=== PATIENT | male | born 1940 | race Caucasian/White ===

== ENCOUNTER 2018-08-31 08:54 | Outpatient (CLI) | payer MEDICARE ==
[2018-08-31] VITALS (21 sets, daily range): BP systolic 98–150; BP diastolic 52–97
[~2018-08-31 08:54] MED LIST: ALLO100T PO; AMIO200T40 PO; AMLO1CAP59 PO; ATEN1TAB4 PO; BENA10TA74 PO; DABI150C PO; FURO40TA4 PO; HYT1T PO; IBUP-1574 PO; MV-M1TAB13 PO; POTA20TA39 PO; SIMV20TA5 PO
== END 2018-08-31 23:59 | disposition home or self-care (01) ==
LOC: CARD DIAG 08:54
PROVIDERS: ATTEND Internal Medicine Cardiovascular Disease
DX: R42 Dizziness and giddiness (principal); I10 Essential (primary) hypertension; Z98.890 Other specified postprocedural states; Z72.89 Other problems related to lifestyle
CPT/HCPCS: 93660

== ENCOUNTER 2018-11-09 05:30 | Inpatient (IN) | payer MEDICARE ==
[~2018-11-09] VITALS: Ht 172.7 cm; Wt 95.0 kg
[2018-11-09 06:22] LABS: BASOPHILS % (AUTO) 0.1 % (0-1); EOSINOPHILS # (AUTO) 0.1 X10'3 (0-0.9); EOSINOPHILS % (AUTO) 0.5 % (0-6); HEMATOCRIT 28.7 % (42.0-52.0); HEMOGLOBIN 9.7 g/dl (14.0-17.9); LYMPHOCYTES # (AUTO) 0.5 X10'3 (1.1-4.8); LYMPHOCYTES % (AUTO) 4.9 % (21-51); MEAN CORPUSCULAR HEMOGLOBIN 30.8 PG (27.0-31.0); MEAN CORPUSCULAR HGB CONC 33.7 g/dL (33.0-36.5); MEAN CORPUSCULAR VOLUME 91.4 FL (78-98); MEAN PLATELET VOLUME 8.4 FL (7.4-10.4); MONOCYTES # (AUTO) 0.7 X10'3 (0-0.9); MONOCYTES % (AUTO) 6.6 % (2-12); NEUTROPHILS # (AUTO) 9.3 X10'3 (1.8-7.7); NEUTROPHILS % (AUTO) 87.9 % (42-75); PLATELET COUNT 214 X10'3 (140-440); RED BLOOD COUNT 3.14 X10'6 (4.70-6.10); WHITE BLOOD COUNT 10.6 X10'3 (4.5-11.0)
[2018-11-09 06:37] LABS: INR 1.1 INR; PARTIAL THROMBOPLASTIN TIME 29 SECONDS (22-32); PROTHROMBIN TIME 11.1 SECONDS (9.0-12.0)
[2018-11-09 06:38] LABS: ALANINE AMINOTRANSFERASE 50 U/L (12-78); ALBUMIN 2.3 G/DL (3.4-5.0); ALBUMIN/GLOBULIN RATIO 0.7 (1.1-1.5); ALKALINE PHOSPHATASE 68 IU/L (46-116); ANION GAP 11 (8-16); ASPARTATE AMINO TRANSFERASE 42 U/L (10-37); BILIRUBIN,TOTAL 0.6 MG/DL (0.1-1.0); CALCIUM 8.8 MG/DL (8.5-10.1); CHLORIDE 102 MMOL/L (99-107); GLUCOSE 100 MG/DL (70-104); POTASSIUM 3.2 MMOL/L (3.5-5.1); SODIUM 135 MMOL/L (135-145); TOTAL CARBON DIOXIDE 22.3 MMOL/L (24-32); TOTAL PROTEIN 5.6 G/DL (6.4-8.2)
[2018-11-09 06:46] LABS: MAGNESIUM 1.7 MG/DL (1.5-2.4)
[2018-11-09 06:58] LABS: BLOOD UREA NITROGEN 97 MG/DL (7-18); BUN/CREATININE RATIO 56.4 (5.4-32.0); CREATININE 1.72 MG/DL (0.60-1.10); eGFR 39 ML/MIN
--- NOTE | 2018-11-09 06:58 | NUR ---
pt sister Bethanie would like to speak with admiting Doctor [phone] this is her home number. sister states she would like him placed in rehab, she is unable to care for him. she states he can not be alone and that it took 5 ems to get him lifted this am. pt has has been falling daily.
[2018-11-09 07:38] LABS: PLATELET ESTIMATE NORMAL
[2018-11-09 07:44] LABS: ELLIPTOCYTES 2+; POIKILOCYTOSIS 2+
[2018-11-09 07:45] LABS: SCHISTOCYTES 1+
[2018-11-09] MEDS ORDERED: sulfamethoxazole/trimethoprim DS (800/160mg) tablet PO ONE (07:50)
[2018-11-09] MEDS ORDERED: fluconazole 150mg tablet PO ONE (07:50)
[2018-11-09 08:24] LABS: CLARITY,URINE CLEAR (Clear); COLOR,URINE YELLOW (Yellow); GLUCOSE, URINE NEGATIVE (Neg); KETONES,URINE NEGATIVE (Neg); LEUKOCYTE ESTERASE ,URINE NEGATIVE (Neg); NITRITES, URINE NEGATIVE (Neg); OCCULT BLOOD,URINE SMALL (Neg); PH,URINE 5.5 (4.8-8.0); PROTEIN,URINE NEGATIVE (Neg); UROBILINOGEN,URINE 0.2 E.U/dL (0.2-1.0)
[2018-11-09 08:26] LABS: UA COLLECTION TYPE CLN CATCH MIDSTREAM
[2018-11-09] MEDS ORDERED: NITR0.4T48 SL (08:29)
[2018-11-09] MEDS ORDERED: ATEN25TA PO (08:29)
[2018-11-09] MEDS ORDERED: MELO-100 PO (08:29)
[2018-11-09] MEDS ORDERED: LOSA25TA96 PO (08:29)
[2018-11-09 08:51] LABS: BACTERIA,URINE NONE SEEN /HPF (Neg); MUCUS STRANDS NONE SEEN /LPF (Neg); SQUAMOUS EPITHELIAL CELL,UR NONE SEEN /LPF (FEW); WBC,URINE 0-4 /HPF (0-4)
[2018-11-09] MEDS ORDERED: magnesium 4gm in 100ml NS 100 ML IV PRN (09:10)
[2018-11-09] MEDS ORDERED: ondansetron/PF 4mg/2ml inj IV PRN (09:10)
[2018-11-09] MEDS ORDERED: potassium Cl 40MEQ/NS 500ml 500 ML IV PRN ×2 (09:10)
[2018-11-09] MEDS ORDERED: magnesium Cl slow-release 64mg tablet PO PRN (09:10)
[2018-11-09] MEDS ORDERED: acetaminophen 325mg tablet PO PRN ×2 (09:10)
[2018-11-09] MEDS ORDERED: magnesium 2GM in 50ml NS 50 ML IV PRN (09:10)
[2018-11-09] MEDS ORDERED: potassium Cl 20 mEq SR tablet PO PRN ×2 (09:10)
[2018-11-09 10:12] LABS: CREATINE KINASE 131 U/L (39-308)
[2018-11-09] MEDS: morphine 4 MG/ML inj SYRINge IV PRN ×2 (10:28→19:44)
[2018-11-09] MEDS: normal saline 1000ml 1,000 ML IV SCH ×2 (10:28→17:39)
[2018-11-09] MEDS ORDERED: APIX2.5T PO (12:15)
[2018-11-09] MEDS ORDERED: LOPE2CAP PO (12:18)
[2018-11-09] MEDS ORDERED: ATOR20TA66 PO (12:20)
[2018-11-09] MEDS ORDERED: FAMO20TA8 PO (12:21)
[2018-11-09] MEDS ORDERED: FLO0.1T PO (12:22)
[2018-11-09] MEDS ORDERED: TAMS0.4C32 PO (12:24)
[2018-11-09] MEDS: nystatin 15 GM powder TP SCH ×2 (13:00→19:58)
--- NOTE | 2018-11-09 15:50 | NUR ---
Received report from Danilo SINGH in ER. Patient has arrived in room 354C patient has excoriated groin area no pictures taken in ER.
[2018-11-09] MEDS: HYDROcodone/acetaminophen 5mg/325mg tablet PO PRN (15:52)
[2018-11-09 16:15] VITALS: BP 146/53
--- NOTE | 2018-11-09 18:23 | NUR ---
Problems reprioritized. Patient report given, RIDDHI SINGH questions answered & plan of care reviewed with . PATIENT IN BED EATTING DINNER, DAUGHTER AT BEDSIDE. CALL LIGHT IN REACH, BED LOW LOCKED
--- NOTE | 2018-11-09 18:54 | NUR ---
Patient in room [facility] 354. I have received report from Rachna SINGH and had the opportunity to ask questions and assume patient care. Pt was sitting up in bed eating dinner with daughter at bedside. Pt has no signs of distress, will continue to monitor.
[2018-11-09] MEDS ORDERED: potassium Cl oral solution 20 MEQ/15 ML PO PRN (19:05)
[2018-11-09] MEDS: docusate sod 100mg capsule PO SCH (19:44)
[2018-11-09] MEDS: apixaban 2.5mg tablet PO SCH (19:44)
[2018-11-09 20:00] VITALS: BP 115/79
[2018-11-09] MEDS ORDERED: heparin, porcine 5000 units/ml vial SQ SCH (20:00)
[2018-11-09] MEDS: potassium Cl oral solution 20 MEQ/15 ML PO PRN (21:22)
[2018-11-10 00:39] VITALS: BP 126/57
[2018-11-10] MEDS: potassium Cl oral solution 20 MEQ/15 ML PO PRN (01:50)
[2018-11-10] MEDS: HYDROcodone/acetaminophen 5mg/325mg tablet PO PRN ×3 (01:52→17:23)
[2018-11-10] MEDS: normal saline 1000ml 1,000 ML IV SCH ×2 (04:46→17:24)
[2018-11-10 05:39] LABS: BASOPHILS % (AUTO) 0.4 % (0-1); EOSINOPHILS # (AUTO) 0.1 X10'3 (0-0.9); EOSINOPHILS % (AUTO) 1.3 % (0-6); HEMATOCRIT 27.6 % (42.0-52.0); HEMOGLOBIN 9.5 g/dl (14.0-17.9); LYMPHOCYTES # (AUTO) 1.2 X10'3 (1.1-4.8); LYMPHOCYTES % (AUTO) 14.4 % (21-51); MEAN CORPUSCULAR HGB CONC 34.4 g/dL (33.0-36.5); MEAN PLATELET VOLUME 9.3 FL (7.4-10.4); MONOCYTES # (AUTO) 0.8 X10'3 (0-0.9); MONOCYTES % (AUTO) 8.9 % (2-12); NEUTROPHILS # (AUTO) 6.4 X10'3 (1.8-7.7); PLATELET COUNT 214 X10'3 (140-440); RED BLOOD COUNT 3.06 X10'6 (4.70-6.10); RED CELL DISTRIBUTION WIDTH 17.4 % (11.5-14.5); WHITE BLOOD COUNT 8.6 X10'3 (4.5-11.0)
[2018-11-10 05:45] LABS: ALBUMIN 2.4 G/DL (3.4-5.0); ANION GAP 9 (8-16); BLOOD UREA NITROGEN 83 MG/DL (7-18); BUN/CREATININE RATIO 55.3 (5.4-32.0); CALCIUM 9.2 MG/DL (8.5-10.1); CHLORIDE 104 MMOL/L (99-107); GLUCOSE 92 MG/DL (70-104); MAGNESIUM 1.9 MG/DL (1.5-2.4); POTASSIUM 3.9 MMOL/L (3.5-5.1); SODIUM 137 MMOL/L (135-145); eGFR 45 ML/MIN
--- NOTE | 2018-11-10 06:15 | NUR ---
Patient in room [facility] 354. I have received report from SAMANTHA Oliver and had the opportunity to ask questions and assume patient care.
--- NOTE | 2018-11-10 06:18 | NUR ---
Problems reprioritized. Patient report given, questions answered & plan of care reviewed with Mis SINGH.
[2018-11-10 08:00] VITALS: BP_SYST 116; BP_SYST 127; BP_SYST 130; BP_SYST 134; BP_DIAS 55; BP_DIAS 57; BP_DIAS 61; BP_DIAS 63
[2018-11-10] MEDS: K and/or MAG REPLACEMENT MC SCH (08:00)
[2018-11-10] MEDS: docusate sod 100mg capsule PO SCH ×2 (09:04→20:19)
[2018-11-10] MEDS: losartan 25mg tablet PO SCH (09:05)
[2018-11-10] MEDS: apixaban 2.5mg tablet PO SCH ×2 (09:06→20:19)
[2018-11-10] MEDS: atenolol 25mg tablet PO SCH (09:06)
[2018-11-10] MEDS: fludrocortisone acetate 0.1mg tablet PO SCH (09:06)
[2018-11-10] MEDS: atorvastatin 20mg tablet PO SCH (09:06)
[2018-11-10] MEDS: tamsulosin 0.4mg capsule PO SCH (09:07)
[2018-11-10] MEDS: nystatin 15 GM powder TP SCH ×3 (10:47→20:22)
--- NOTE | 2018-11-10 11:11 | NUR ---
Student Medication Administration: For this medication-pass time frame, all medication were reviewed, dispensed, administered and documented per hospital policy by [facility].
--- NOTE | 2018-11-10 18:15 | NUR ---
Patient in room [facility] 354. I have received report from Mis SINGH and had the opportunity to ask questions and assume patient care.
--- NOTE | 2018-11-10 18:35 | NUR ---
Problems reprioritized. Patient report given, questions answered & plan of care reviewed with SAMANTHA Riggs.
[2018-11-10 19:00] VITALS: BP 112/41
[2018-11-10 20:00] VITALS: BP_SYST 105; BP_SYST 125; BP_SYST 132; BP_DIAS 43; BP_DIAS 53; BP_DIAS 63
[2018-11-11] VITALS: BP 139/67
[2018-11-11 05:55] LABS: BASOPHILS % (AUTO) 0.4 % (0-1); EOSINOPHILS # (AUTO) 0.2 X10'3 (0-0.9); HEMATOCRIT 29.5 % (42.0-52.0); HEMOGLOBIN 9.8 g/dl (14.0-17.9); LYMPHOCYTES % (AUTO) 12.1 % (21-51); MEAN CORPUSCULAR HEMOGLOBIN 30.3 PG (27.0-31.0); MEAN CORPUSCULAR HGB CONC 33.4 g/dL (33.0-36.5); MEAN CORPUSCULAR VOLUME 90.6 FL (78-98); MEAN PLATELET VOLUME 9.1 FL (7.4-10.4); MONOCYTES # (AUTO) 0.8 X10'3 (0-0.9); MONOCYTES % (AUTO) 9.8 % (2-12); NEUTROPHILS # (AUTO) 6.5 X10'3 (1.8-7.7); NEUTROPHILS % (AUTO) 75.7 % (42-75); PLATELET COUNT 235 X10'3 (140-440); RED BLOOD COUNT 3.25 X10'6 (4.70-6.10); WHITE BLOOD COUNT 8.6 X10'3 (4.5-11.0)
[2018-11-11 06:00] LABS: ALBUMIN 2.4 G/DL (3.4-5.0); ANION GAP 9 (8-16); BLOOD UREA NITROGEN 47 MG/DL (7-18); BUN/CREATININE RATIO 43.5 (5.4-32.0); CALCIUM 9.5 MG/DL (8.5-10.1); CHLORIDE 107 MMOL/L (99-107); CREATININE 1.08 MG/DL (0.60-1.10); GLUCOSE 92 MG/DL (70-104); MAGNESIUM 1.7 MG/DL (1.5-2.4); POTASSIUM 3.7 MMOL/L (3.5-5.1); SODIUM 141 MMOL/L (135-145); TOTAL CARBON DIOXIDE 24.6 MMOL/L (24-32); eGFR 66 ML/MIN
--- NOTE | 2018-11-11 06:27 | NUR ---
Problems reprioritized. Patient report given, questions answered & plan of care reviewed with Mis SINGH and AYLA Simpson..
[2018-11-11] MEDS: normal saline 1000ml 1,000 ML IV SCH ×2 (07:14→20:17)
[2018-11-11 07:24] VITALS: BP 167/77
[2018-11-11 08:00] VITALS: BP_SYST 137; BP_SYST 143; BP_DIAS 63; BP_DIAS 76
[2018-11-11] MEDS: K and/or MAG REPLACEMENT MC SCH (08:00)
[2018-11-11] MEDS: HYDROcodone/acetaminophen 5mg/325mg tablet PO PRN ×2 (09:15→19:47)
[2018-11-11] MEDS: atenolol 25mg tablet PO SCH (09:15)
[2018-11-11] MEDS: tamsulosin 0.4mg capsule PO SCH (09:16)
[2018-11-11] MEDS: atorvastatin 20mg tablet PO SCH (09:16)
[2018-11-11] MEDS: fludrocortisone acetate 0.1mg tablet PO SCH (09:16)
[2018-11-11] MEDS: apixaban 2.5mg tablet PO SCH ×2 (09:16→19:44)
[2018-11-11] MEDS: docusate sod 100mg capsule PO SCH ×2 (09:17→19:44)
[2018-11-11] MEDS: losartan 25mg tablet PO SCH (09:17)
[2018-11-11 11:00] VITALS: BP 143/76
[2018-11-11] MEDS: nystatin 15 GM powder TP SCH ×3 (11:04→23:17)
--- NOTE | 2018-11-11 12:05 | NUR ---
Mal[place] consult re: Wt loss with decreased appetite. Attempted visit with pt at bedside however pt was sleeping and did not wake for RD visit. No visible fat or muscle wasting was noted at the time of visit. Pt on a heart healthy diet with previous PO intake averaging 75% however noted that recent intake down to average of 25%. Pt with no significant edema or decrease in muscle strength. Pt currently does not meet criteria for malnutrition. Will continue to follow and monitor qualifying criteria and need for ONS if increased PO intake does return. Addendum: 11/11/18 at [address] Amended: Links added.
[2018-11-11 16:33] LABS: FERRITIN 120 NG/ML (26-388)
[2018-11-11 16:45] LABS: % IRON SATURATION 9 % (11-46); IRON 18 UG/DL (53-167); TOTAL IRON BINDING CAPACITY 201 UG/DL (259-388)
--- NOTE | 2018-11-11 18:35 | NUR ---
Problems reprioritized. Patient report given, questions answered & plan of care reviewed with SAMANTHA Riggs.
--- NOTE | 2018-11-11 18:51 | NUR ---
5Patient in room [facility] 354. I have received report from Msi SINGH and had the opportunity to ask questions and assume patient care.
[2018-11-11 19:00] VITALS: BP 157/65
[2018-11-11 20:00] VITALS: BP_SYST 100; BP_SYST 101; BP_SYST 118; BP_DIAS 69; BP_DIAS 78
[2018-11-11] MEDS ORDERED: magnesium hydroxide 30ml (MOM) UD suspension PO PRN (20:10)
[2018-11-11] MEDS ORDERED: diphenhydrAMINE 25mg capsule PO ONE (23:10)
[2018-11-12] VITALS: BP 149/59
[2018-11-12 06:12] LABS: BASOPHILS % (AUTO) 0.4 % (0-1); EOSINOPHILS # (AUTO) 0.2 X10'3 (0-0.9); EOSINOPHILS % (AUTO) 2.1 % (0-6); HEMATOCRIT 29.2 % (42.0-52.0); LYMPHOCYTES # (AUTO) 1.1 X10'3 (1.1-4.8); LYMPHOCYTES % (AUTO) 10.5 % (21-51); MEAN CORPUSCULAR HEMOGLOBIN 30.7 PG (27.0-31.0); MEAN CORPUSCULAR HGB CONC 34.2 g/dL (33.0-36.5); MEAN CORPUSCULAR VOLUME 89.7 FL (78-98); MEAN PLATELET VOLUME 8.6 FL (7.4-10.4); MONOCYTES # (AUTO) 0.9 X10'3 (0-0.9); MONOCYTES % (AUTO) 8.4 % (2-12); NEUTROPHILS % (AUTO) 78.6 % (42-75); PLATELET COUNT 228 X10'3 (140-440); RED BLOOD COUNT 3.25 X10'6 (4.70-6.10); WHITE BLOOD COUNT 10.1 X10'3 (4.5-11.0)
[2018-11-12 06:21] LABS: ALBUMIN 2.3 G/DL (3.4-5.0); ANION GAP 7 (8-16); BLOOD UREA NITROGEN 33 MG/DL (7-18); BUN/CREATININE RATIO 36.7 (5.4-32.0); CALCIUM 9.4 MG/DL (8.5-10.1); CHLORIDE 108 MMOL/L (99-107); GLUCOSE 88 MG/DL (70-104); MAGNESIUM 1.6 MG/DL (1.5-2.4); POTASSIUM 3.5 MMOL/L (3.5-5.1); SODIUM 142 MMOL/L (135-145); TOTAL CARBON DIOXIDE 27.5 MMOL/L (24-32); eGFR 81 ML/MIN
--- NOTE | 2018-11-12 06:50 | NUR ---
Problems reprioritized. Patient report given, questions answered & plan of care reviewed with Hannah SINGH.
--- NOTE | 2018-11-12 06:50 | NUR ---
Patient in room [facility] 354. I have received report from Keely SINGH and had the opportunity to ask questions and assume patient care.
[2018-11-12 07:00] VITALS: BP 178/73
[2018-11-12 07:05] VITALS: BP 168/72
[2018-11-12] MEDS: tamsulosin 0.4mg capsule PO SCH (07:16)
[2018-11-12] MEDS: docusate sod 100mg capsule PO SCH (07:16)
[2018-11-12] MEDS: nystatin 15 GM powder TP SCH ×2 (07:16→13:23)
[2018-11-12] MEDS: fludrocortisone acetate 0.1mg tablet PO SCH (07:16)
[2018-11-12] MEDS: apixaban 2.5mg tablet PO SCH (07:16)
[2018-11-12] MEDS: atorvastatin 20mg tablet PO SCH (07:16)
[2018-11-12] MEDS: losartan 25mg tablet PO SCH (07:26)
[2018-11-12] MEDS: atenolol 25mg tablet PO SCH (07:26)
[2018-11-12] MEDS: K and/or MAG REPLACEMENT MC SCH (08:00)
[2018-11-12 11:00] VITALS: BP 148/81
[2018-11-12 11:23] LABS: OCCULT BLOOD STOOL NEGATIVE (Neg)
[2018-11-12] MEDS ORDERED: NYSPWD TP (13:25)
--- NOTE | 2018-11-12 14:47 | NUR ---
Discharge instructions given to patient, patient verbalized understanding of all instructions made. Patient's Nystatin powder sent with patient. Instructed patient to ensure he has all his belongings before he leave.
--- NOTE | 2018-11-12 14:57 | NUR ---
Report given to Nori BOSS from [facility] over the phone.
--- NOTE | 2018-11-12 15:42 | NUR ---
[facility] came to warehouse picker patient and transport patient to [facility] facility. Hands off report given and belongings sent with the patient
[2018-11-12] MEDS ORDERED: diphenhydrAMINE 25mg capsule PO SCH (21:00)
== END 2018-11-12 16:50 | DRG 682 ==
LOC: ER 05:31 → ED HOLD 09:08 → SUR 3N 16:01
PROVIDERS: ADMIT Internal Medicine; ATTEND Family Medicine
DX: N17.9 Acute kidney failure, unspecified (principal); I50.33 Acute on chronic diastolic (congestive) heart failure; I13.0 Hypertensive heart and chronic kidney disease with heart failure and stage 1 through stage 4 chronic kidney disease, or unspecified chronic kidney disease; E87.6 Hypokalemia; N18.9 Chronic kidney disease, unspecified; D63.8 Anemia in other chronic diseases classified elsewhere; R62.7 Adult failure to thrive; S31.109A Unspecified open wound of abdominal wall, unspecified quadrant without penetration into peritoneal cavity, initial encounter; X58.XXXA Exposure to other specified factors, initial encounter; N40.0 Benign prostatic hyperplasia without lower urinary tract symptoms; M10.9 Gout, unspecified; I48.2 Chronic atrial fibrillation; M54.5 Low back pain; G89.29 Other chronic pain; L30.9 Dermatitis, unspecified; F17.200 Nicotine dependence, unspecified, uncomplicated; Z79.01 Long term (current) use of anticoagulants; Y93.89 Activity, other specified; Y92.89 Other specified places as the place of occurrence of the external cause; Y99.8 Other external cause status
CPT/HCPCS: 36415; 71046; 80048; 80053; 81001; 82272; 82550; 82728; 83540; 83550; 83735; 83880; 84443; 84484; 85025; 85610; 85730; 87070; 93005; 93306; 97110; 97116; 97162; 97530; 99285; G0378; J2270; J7030; Q0163

== ENCOUNTER → 2019-02-05 | Outpatient (CLI) | payer MEDICARE ==
[~2019-02-05] MED LIST changes: -AMIO200T40 PO; -AMLO1CAP59 PO; +APIX2.5T PO; -ATEN1TAB4 PO; +ATEN25TA PO; +ATOR20TA66 PO; -BENA10TA74 PO; -DABI150C PO; +FAMO20TA8 PO; +FLO0.1T PO; -FURO40TA4 PO; -HYT1T PO; -IBUP-1574 PO; +LOPE2CAP PO; +LOSA25TA96 PO; -MV-M1TAB13 PO; +NYSPWD TP; -POTA20TA39 PO; -SIMV20TA5 PO; +TAMS0.4C32 PO
== END | disposition home or self-care (01) ==
LOC: LAB SPEC 16:06
PROVIDERS: ATTEND Internal Medicine
DX: R82.90 Unspecified abnormal findings in urine (principal); R50.81 Fever presenting with conditions classified elsewhere
CPT/HCPCS: 87088; 87186

== ENCOUNTER 2020-02-25 09:42 | Emergency (ER) | payer MEDICARE ==
[~2020-02-25] VITALS: Ht 172.7 cm; Wt 87.3 kg
[~2020-02-25 09:42] MED LIST changes: +FERR325T28 PO; +FURO40TA4 PO; +NITR0.4T48 SL; -NYSPWD TP; +POTA20TA19 PO
[2020-02-25] MEDS ORDERED: TETanus/Pertussis (Acell)/Diphther VAC/PF (Tdap-Adult) 0.5ml syringe IMVAC ONE (09:55)
[2020-02-25] MEDS ORDERED: SULF1TAB49 PO (10:10)
[2020-02-25] MEDS ORDERED: CEPH-572 PO (10:10)
[2020-02-25 10:33] VITALS: BP 150/70
== END 2020-02-25 10:37 | disposition home or self-care (01) ==
LOC: ER 09:43
DX: S60.511A Abrasion of right hand, initial encounter (principal); L03.113 Cellulitis of right upper limb; F03.90 Unspecified dementia, unspecified severity, without behavioral disturbance, psychotic disturbance, mood disturbance, and anxiety; I48.91 Unspecified atrial fibrillation; I50.9 Heart failure, unspecified; I11.0 Hypertensive heart disease with heart failure; Z98.890 Other specified postprocedural states; Z56.0 Unemployment, unspecified; Z79.01 Long term (current) use of anticoagulants; Z79.899 Other long term (current) drug therapy; X58.XXXA Exposure to other specified factors, initial encounter; Y93.89 Activity, other specified; Y92.89 Other specified places as the place of occurrence of the external cause; Y99.8 Other external cause status
CPT/HCPCS: 90471; 90715; 99283

== ENCOUNTER 2021-08-20 18:12 | Emergency (ER) | payer MEDICARE ==
[~2021-08-20] VITALS: Ht 172.7 cm; Wt 90.7 kg
[~2021-08-20 18:12] MED LIST changes: -FLO0.1T PO; -LOSA25TA96 PO; -NITR0.4T48 SL; +POTA-207 PO; -POTA20TA19 PO
[2021-08-20] MEDS ORDERED: CefTRIAXone 2gm/D5W 50ml BAG 50 ML IV ONE (18:55)
[2021-08-20 19:34] LABS: BASOPHILS % (AUTO) 0.6 % (0-1); EOSINOPHILS % (AUTO) 0.5 % (0-6); HEMATOCRIT 31.3 % (42.0-52.0); HEMOGLOBIN 10.5 g/dl (14.0-17.9); LYMPHOCYTES # (AUTO) 0.6 X10'3 (1.1-4.8); LYMPHOCYTES % (AUTO) 13.5 % (21-51); MEAN CORPUSCULAR HEMOGLOBIN 32.2 PG (27.0-31.0); MEAN CORPUSCULAR HGB CONC 33.4 g/dL (33.0-36.5); MEAN CORPUSCULAR VOLUME 96.4 FL (78-98); MEAN PLATELET VOLUME 9.1 FL (7.4-10.4); MONOCYTES # (AUTO) 0.5 X10'3 (0-0.9); MONOCYTES % (AUTO) 12.3 % (2-12); NEUTROPHILS # (AUTO) 3.1 X10'3 (1.8-7.7); NEUTROPHILS % (AUTO) 73.1 % (42-75); PLATELET COUNT 142 X10'3 (140-440); RED BLOOD COUNT 3.25 X10'6 (4.70-6.10); WHITE BLOOD COUNT 4.2 X10'3 (4.5-11.0)
[2021-08-20 19:36] LABS: CLARITY,URINE SLIGHTLY CLOUDY (Clear); COLOR,URINE YELLOW (Yellow); GLUCOSE, URINE NEGATIVE (Neg); KETONES,URINE NEGATIVE (Neg); LEUKOCYTE ESTERASE ,URINE SMALL (Neg); NITRITES, URINE NEGATIVE (Neg); OCCULT BLOOD,URINE SMALL (Neg); PROTEIN,URINE 30 mg/dl (Neg); UROBILINOGEN,URINE 0.2 E.U/dL (0.2-1.0)
[2021-08-20 19:41] LABS: UA COLLECTION TYPE URINAL
[2021-08-20 19:42] LABS: CELLULAR CAST 0-4 /LPF (NEGATIVE)
[2021-08-20 19:43] LABS: BACTERIA,URINE 2+ /HPF (Neg); SQUAMOUS EPITHELIAL CELL,UR FEW /LPF (FEW)
[2021-08-20 19:44] LABS: WBC,URINE 20-30 /HPF (0-4)
[2021-08-20 19:50] LABS: ALANINE AMINOTRANSFERASE 31 U/L (12-78); ALBUMIN 2.8 G/DL (3.4-5.0); ALBUMIN/GLOBULIN RATIO 0.7 (1.1-1.5); ALKALINE PHOSPHATASE 94 IU/L (46-116); ANION GAP 8 (8-16); ASPARTATE AMINO TRANSFERASE 26 U/L (10-37); BILIRUBIN,TOTAL 0.4 MG/DL (0.1-1.0); BLOOD UREA NITROGEN 46 MG/DL (7-18); BUN/CREATININE RATIO 27.9 (5.4-32.0); CALCIUM 8.8 MG/DL (8.5-10.1); CHLORIDE 111 MMOL/L (99-107); CREATININE 1.65 MG/DL (0.60-1.10); GLUCOSE 91 MG/DL (70-104); POTASSIUM 4.4 MMOL/L (3.5-5.1); SODIUM 142 MMOL/L (135-145); TOTAL CARBON DIOXIDE 22.8 MMOL/L (24-32); TOTAL PROTEIN 6.7 G/DL (6.4-8.2); eGFR 40 ML/MIN
[2021-08-20] MEDS ORDERED: CEPH-585 PO (20:28)
[2021-08-20 21:46] VITALS: BP 134/66
== END 2021-08-20 21:55 | disposition home or self-care (01) ==
LOC: ER 18:13
DX: N39.0 Urinary tract infection, site not specified (principal); A41.9 Sepsis, unspecified organism; F03.91 Unspecified dementia, unspecified severity, with behavioral disturbance; I48.91 Unspecified atrial fibrillation; I11.0 Hypertensive heart disease with heart failure; I50.9 Heart failure, unspecified; Z56.0 Unemployment, unspecified; Z79.2 Long term (current) use of antibiotics; Z79.899 Other long term (current) drug therapy
CPT/HCPCS: 36415; 71045; 80053; 81001; 84145; 85025; 87088; 93005; 96365; 96366; 99285; J0696; 99284

== ENCOUNTER 2021-08-21 06:03 | Emergency (ER) | payer MEDICARE ==
[~2021-08-21] VITALS: Ht 177.8 cm; Wt 100.0 kg
[~2021-08-21 06:03] MED LIST changes: +CEPH-585 PO
[2021-08-21] MEDS ORDERED: LORazepam 2 mg/ml vial IV ONE (06:45)
[2021-08-21] MEDS ORDERED: morphine 4 MG/ML inj SYRINge IV ONE (06:45)
--- NOTE | 2021-08-21 07:10 | NUR ---
ATIVAN GIVEN FOR PAIN AND AGITATION.
[2021-08-21] MEDS ORDERED: CefTRIAXone 2gm/D5W 50ml BAG 50 ML IV ONE (07:15)
[2021-08-21] MEDS ORDERED: normal saline 1000ml 1,000 ML IV ONE (07:15)
--- NOTE | 2021-08-21 08:08 | NUR ---
KATIE FROM LAB CALLED. PT POSITIVE FOR COVID, LET DR. WEISS KNOW.
[2021-08-21] MEDS ORDERED: CASIRIVIMAB/IMDEVIMAB inject. 10 ML in normal saline 100ml IV soln 100 ML IV ONE (08:10)
[2021-08-21 08:39] LABS: ALANINE AMINOTRANSFERASE 30 U/L (12-78); ALBUMIN/GLOBULIN RATIO 0.8 (1.1-1.5); ALKALINE PHOSPHATASE 89 IU/L (46-116); ASPARTATE AMINO TRANSFERASE 30 U/L (10-37); BILIRUBIN,TOTAL 0.4 MG/DL (0.1-1.0); BLOOD UREA NITROGEN 42 MG/DL (7-18); BUN/CREATININE RATIO 26.8 (5.4-32.0); CALCIUM 9.1 MG/DL (8.5-10.1); CREATININE 1.57 MG/DL (0.60-1.10); GLUCOSE 83 MG/DL (70-104); TOTAL CARBON DIOXIDE 21.1 MMOL/L (24-32); eGFR 43 ML/MIN
[2021-08-21 09:10] LABS: ANION GAP 12 (8-16); CHLORIDE 111 MMOL/L (99-107); POTASSIUM 4.1 MMOL/L (3.5-5.1); SODIUM 144 MMOL/L (135-145)
[2021-08-21 09:29] LABS: BASOPHILS % (AUTO) 0.5 % (0-1); EOSINOPHILS % (AUTO) 0 % (0-6); HEMATOCRIT 33.5 % (42.0-52.0); HEMOGLOBIN 11.3 g/dl (14.0-17.9); LYMPHOCYTES # (AUTO) 0.4 X10'3 (1.1-4.8); LYMPHOCYTES % (AUTO) 6.8 % (21-51); MEAN CORPUSCULAR HEMOGLOBIN 32.5 PG (27.0-31.0); MEAN CORPUSCULAR HGB CONC 33.6 g/dL (33.0-36.5); MEAN CORPUSCULAR VOLUME 96.5 FL (78-98); MEAN PLATELET VOLUME 10.1 FL (7.4-10.4); MONOCYTES # (AUTO) 0.6 X10'3 (0-0.9); MONOCYTES % (AUTO) 10.7 % (2-12); NEUTROPHILS # (AUTO) 4.5 X10'3 (1.8-7.7); PLATELET COUNT 195 X10'3 (140-440); RED BLOOD COUNT 3.47 X10'6 (4.70-6.10); RED CELL DISTRIBUTION WIDTH 16.7 % (11.5-14.5); WHITE BLOOD COUNT 5.4 X10'3 (4.5-11.0)
--- NOTE | 2021-08-21 09:54 | NUR ---
PT VOIDED VIA DIAPER. CHANGED DIAPER AND PT PERICARE COMPLETED.
[2021-08-21] MEDS ORDERED: ketorolac trometh. 30mg/ml inj. IV ONE (10:25)
[2021-08-21] MEDS ORDERED: acetaminophen 325mg tablet PO ONE (10:25)
--- NOTE | 2021-08-21 12:32 | NUR ---
[facility] BLS SCHEDULED PRESCRIPTION EYEGLASS MAKER TIME IS 1400.
--- NOTE | 2021-08-21 12:40 | NUR ---
pt up to chair with 2 person asst. pt pulled out his IV. Pt large void via diaper. pericare performed.
--- NOTE | 2021-08-21 13:00 | NUR ---
PT PLACED BACK TO BED WITH 2 PERSON ASST. PT ABLE TO BARE WT FOR TRANSFER. TYLENOL 650MG PO GIVEN FOR TEMP 101.2.
[2021-08-21 14:14] VITALS: BP 162/88
== END 2021-08-21 14:16 | disposition short-term general hospital (02) ==
LOC: ER 06:04
DX: U07.1 COVID-19 (principal); R50.9 Fever, unspecified; I11.0 Hypertensive heart disease with heart failure; I10 Essential (primary) hypertension; I48.91 Unspecified atrial fibrillation; Z56.0 Unemployment, unspecified; Z98.890 Other specified postprocedural states; Z79.2 Long term (current) use of antibiotics; Z79.899 Other long term (current) drug therapy
CPT/HCPCS: 36415; 71045; 80053; 83605; 83735; 84145; 85025; 87040; 87635; 93005; 96365; 96375; 99285; C9803; J0696; J1885; J2060; J2270; J3490; J7030; M0243; Q0244

== ENCOUNTER 2021-08-23 11:22 | Emergency (ER) | payer MEDICARE ==
[~2021-08-23] VITALS: Ht 172.7 cm; Wt 83.0 kg
--- NOTE | 2021-08-23 11:24 | NUR ---
patient on airborne precaution for covid.
--- NOTE | 2021-08-23 12:19 | NUR ---
CALLED SISTER ED TO SEE IF SHE COULD TAKE HIME BACK TO FACILITY, BUT SHE IS UNABLE TO HANDLE HIM IN AND OUT OF THE CAR.
--- NOTE | 2021-08-23 12:31 | NUR ---
ED [facility] CELL [phone]
[2021-08-23 12:46] VITALS: BP 152/70
== END 2021-08-23 12:44 ==
LOC: ER 11:22
DX: U07.1 COVID-19 (principal); F03.90 Unspecified dementia, unspecified severity, without behavioral disturbance, psychotic disturbance, mood disturbance, and anxiety; R09.02 Hypoxemia; R60.0 Localized edema; I48.91 Unspecified atrial fibrillation; I11.0 Hypertensive heart disease with heart failure; I50.9 Heart failure, unspecified; Z98.890 Other specified postprocedural states; Z56.0 Unemployment, unspecified; Z79.2 Long term (current) use of antibiotics; Z79.899 Other long term (current) drug therapy
CPT/HCPCS: 99283; 99284

== ENCOUNTER 2021-08-28 18:13 | Emergency (ER) | payer MEDICARE ==
[~2021-08-28] VITALS: Ht 172.7 cm; Wt 84.1 kg
[2021-08-28] MEDS: hyDRALAzine 10mg tablet PO ONE (18:45)
[2021-08-28] MEDS ORDERED: hyDRALAzine 10mg tablet PO SCH (18:45)
--- NOTE | 2021-08-28 19:34 | NUR ---
ATTEMPTED TO DO EKG, STRUCTURAL IRON ERECTOR REFUSED TO TAKE PT OUT OF AMBULANCE, MD GIBSON NOTIFIED.
[2021-08-28 21:01] LABS: BASOPHILS % (AUTO) 0.1 % (0-1); EOSINOPHILS % (AUTO) 0 % (0-6); HEMATOCRIT 37.4 % (42.0-52.0); HEMOGLOBIN 12.5 g/dl (14.0-17.9); LYMPHOCYTES # (AUTO) 0.6 X10'3 (1.1-4.8); LYMPHOCYTES % (AUTO) 6.6 % (21-51); MEAN CORPUSCULAR HEMOGLOBIN 31.7 PG (27.0-31.0); MEAN CORPUSCULAR HGB CONC 33.4 g/dL (33.0-36.5); MEAN CORPUSCULAR VOLUME 94.8 FL (78-98); MEAN PLATELET VOLUME 9.6 FL (7.4-10.4); MONOCYTES # (AUTO) 0.6 X10'3 (0-0.9); MONOCYTES % (AUTO) 6.7 % (2-12); NEUTROPHILS # (AUTO) 8.2 X10'3 (1.8-7.7); NEUTROPHILS % (AUTO) 86.6 % (42-75); PLATELET COUNT 210 X10'3 (140-440); RED BLOOD COUNT 3.94 X10'6 (4.70-6.10); RED CELL DISTRIBUTION WIDTH 16.2 % (11.5-14.5); WHITE BLOOD COUNT 9.5 X10'3 (4.5-11.0)
[2021-08-28 21:23] LABS: ALANINE AMINOTRANSFERASE 46 U/L (12-78); ALBUMIN 2.5 G/DL (3.4-5.0); ALBUMIN/GLOBULIN RATIO 0.6 (1.1-1.5); ALKALINE PHOSPHATASE 88 IU/L (46-116); ANION GAP 7 (8-16); BILIRUBIN,TOTAL 0.5 MG/DL (0.1-1.0); BLOOD UREA NITROGEN 39 MG/DL (7-18); BUN/CREATININE RATIO 35.5 (5.4-32.0); CALCIUM 9.6 MG/DL (8.5-10.1); CHLORIDE 105 MMOL/L (99-107); GLUCOSE 132 MG/DL (70-104); SODIUM 140 MMOL/L (135-145); TOTAL PROTEIN 6.5 G/DL (6.4-8.2); eGFR 64 ML/MIN
[2021-08-28 21:26] LABS: ASPARTATE AMINO TRANSFERASE 30 U/L (10-37); POTASSIUM 4.9 MMOL/L (3.5-5.1)
--- NOTE | 2021-08-28 23:29 | NUR ---
PT CONTINUES TO GET OUT OF BED, TAKE OFF MASK AND TRY TO WALK DOWN HALLWAY. PT NOT FOLLOWING DIRECTIONS REGARDING SAFETY WHEN STAFF REDIRECTS HIS ACTIONS. PT NOT KEEPING MASK ON
[2021-08-29] MEDS: hyDRALAzine 10mg tablet PO SCH (00:17)
[2021-08-29 00:35] VITALS: BP 188/109
== END 2021-08-29 00:37 | disposition home or self-care (01) ==
LOC: ER 18:13
DX: I11.0 Hypertensive heart disease with heart failure (principal); I50.9 Heart failure, unspecified; R05.9 Cough, unspecified; I48.91 Unspecified atrial fibrillation; Z98.890 Other specified postprocedural states; Z56.0 Unemployment, unspecified; Z79.2 Long term (current) use of antibiotics; Z79.899 Other long term (current) drug therapy
CPT/HCPCS: 36415; 71045; 80053; 84484; 85025; 93005; 99285

== ENCOUNTER → 2021-09-18 | Outpatient (CLI) | payer MEDICARE | END | disposition home or self-care (01) | LOC: LAB SPEC 14:26 | PROVIDERS: ATTEND Family Medicine | DX: I50.9 Heart failure, unspecified (principal) | CPT/HCPCS: 36415; 84132 ==